=== PATIENT | female | born 1945 | race Caucasian/White ===

== ENCOUNTER 2019-09-09 16:00 | Emergency (ER) | payer OTHER ==
[2019-09-09 16:08] VITALS: BP 162/87; PULSE 60; TEMP 98.7; BMI 28.2
--- NOTE | 2019-09-09 16:29 | PDOC ---
Documentation entered by Giovanna Call SCRIBE, acting as scribe for Roxanne Barroso MD. Roxanne Barroso MD: This documentation has been prepared by the Jakub dominguez Brenda, SCRIBE, under my direction and personally reviewed by me in its entirety. I confirm that the documentation accurately reflects all work, treatment, procedures, and medical decision making performed by me. History of Present Illness - General Chief Complaint: Injury Stated Complaint: LEFT ANKLE INJURY History Source: Patient Exam Limitations: No Limitations - History of Present Illness Initial Comments: 09/09/19 16:16 The patient is a 73 year old female, with a significant PMH of HTN and melanoma who presents to the emergency department s/p mechanical fall down last step inside of home. Patient states that she fell on her right side and now has swelling and pain on her right foot, more on the lateral side with a decreased range of motion. The patient denies chest pain, shortness of breath, headache and dizziness. Denies fever, chills, nausea, vomiting, diarrhea and constipation. Denies any other symptoms. Allergies: Codeine, hazelnut, latex, sulfa, tree nut Social history: No reported hx of tobacco use, alcohol use or illicit drug use. Past History - Past Medical History Allergies/Adverse Reactions: Allergies Allergy/AdvReac Type Severity Reaction Status Date / Time codeine Allergy Verified 09/09/19 16:03 hazelnut Allergy Verified 09/09/19 16:03 latex Allergy Verified 09/09/19 16:03 Sulfa (Sulfonamide Allergy Verified 09/09/19 16:03 Antibiotics) tree nut Allergy Verified 09/09/19 16:03 Home Medications: Ambulatory Orders Atenolol [Tenormin -] 25 mg PO DAILY 09/09/19 Sulfamethoxazole/Trimethoprim [Bactrim Ds -] 1 tab PO DAILY 09/09/19 Tamsulosin HCl [Flomax] 0.4 mg PO DAILY 09/09/19 Review of Systems - Review of Systems Able to Perform ROS?: Yes Comments:: 09/09/19 16:17 GENERAL/CONSTITUTIONAL: No fever or chills. No weakness. HEAD, EYES, EARS, NOSE AND THROAT: No change in vision. No ear pain or discharge. No sore throat. CARDIOVASCULAR: No chest pain or shortness of breath. RESPIRATORY: No cough, wheezing, or hemoptysis. GASTROINTESTINAL: No nausea, vomiting, diarrhea or constipation. GENITOURINARY: No dysuria, frequency, or change in urination. MUSCULOSKELETAL: (+)( Right foot pain and swelling. No neck pain. SKIN: No rash NEUROLOGIC: No headache, vertigo, loss of consciousness, or change in strength/ sensation. ENDOCRINE: No increased thirst. No abnormal weight change. HEMATOLOGIC/LYMPHATIC: No anemia, easy bleeding, or history of blood clots. ALLERGIC/IMMUNOLOGIC: No hives or skin allergy. *Physical Exam - Vital Signs Last Vital Signs Temp Pulse Resp BP Pulse Ox 98.7 F 60 18 162/87 97 09/09/19 16:00 09/09/19 16:00 09/09/19 16:00 09/09/19 16:09/09/19 16:00 - Physical Exam GENERAL: Awake, alert, and fully oriented, in no acute distress HEAD: No signs of trauma EXTREMITIES: L ankle with swelling to B/L malleoli, worse over the lateral malleolus. +Ecchymosis to lateral malleolus. +Tenderness to the shaft of the fibula. Dec ROM of the ankle secondary to pain. L hip/femur/knee nontender. Remainder of extremities with normal range of motion, no edema. No clubbing or cyanosis. No cords, erythema, or tenderness NEUROLOGICAL: Cranial nerves II through XII grossly intact. Normal speech, normal gait. Motor and sensation intact SKIN: Warm, dry, normal turgor, no rashes or lesions noted. Procedures - Splinting Splint Location: Left: Ankle Pre-Proc Neuro Vasc Exam: normal Pre-Made Type: aircast Post-Proc Neuro Vasc Exam: normal Complications: No ED Treatment Course - RADIOLOGY Radiology Studies Ordered: Category Date Time Status ANKLE-LEFT [RAD] Stat Radiology 09/09/19 16:10 Ordered LEG TIB/FIB-LEFT [RAD] Stat Radiology 09/09/19 16:10 Ordered Medical Decision Making - Medical Decision Making 09/09/19 16:14 Ankle fx vs sprain, will XR. Patient declines pain meds at present. She has ice pack on the injury. Discharge - Discharge Information Problems reviewed: Yes Clinical Impression/Diagnosis: Fibula fracture Qualifiers: Encounter type: initial encounter Fibula location: distal Fracture type: closed Fracture morphology: unspecified fracture morphology Laterality: left Qualified Code(s): S82.832A - Other fracture of upper and lower end of left fibula, initial encounter for closed fracture Condition: Stable Disposition: HOME - Admission No - Follow up/Referral - Patient Discharge Instructions Patient Printed Discharge Instructions: DI for Ankle Fracture - Post Discharge Activity
== END 2019-09-09 19:30 | disposition home or self-care (01) ==
LOC: FER 16:00
DX: S82.832A Other fracture of upper and lower end of left fibula, initial encounter for closed fracture (principal); W10.9XXA Fall (on) (from) unspecified stairs and steps, initial encounter; Y93.89 Activity, other specified; Y92.009 Unspecified place in unspecified non-institutional (private) residence as the place of occurrence of the external cause; Z88.6 Allergy status to analgesic agent; Z91.040 Latex allergy status; Z88.2 Allergy status to sulfonamides; Z91.018 Allergy to other foods; I10 Essential (primary) hypertension; Z85.820 Personal history of malignant melanoma of skin
CPT/HCPCS: 73590-TC-LT-FY; 73610-TC-LT-FY; 99283-25